=== PATIENT | male | born 2000 | race Caucasian/White ===

== ENCOUNTER 2021-01-16 17:33 | Emergency (ER) | payer OTHER, SELFPAY ==
--- NOTE | 2021-01-16 17:36 | ED.HA ---
HPI - Headache General Chief Complaint: Headache Stated Complaint: headache Time Seen by Provider: 01/16/21 17:36 Source: patient, family and RN notes reviewed Mode of arrival: ambulatory History of Present Illness HPI Narrative: This is a 20-year-old male that presented to urgent care with complaints of a headache for approximately 1 week. Patient notes that he took Motrin at home with no relief. 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 Patient denies any trauma including his he. Patient notes that his head feels fuzzy. He notes that his headaches is on the front part of his forehead. Patient does have an appointment with his primary care physician . It was explained to the patient that we nor can we do a CT of his head. I explained to patient if his situation worsens, if his level of consciousness change become confused has a syncope episode problems with breathing, visual disturbance, diplopia he will need to proceed to the emergency department. He also denies SOB, CP, palpitation, extremity numbness, lightheadedness, dizziness, constipation, diarrhea, chills, or fever. RADHA SOB, CP, palpitation, extremity numbness, lightheadedness, dizziness, constipation, diarrhea, chills, or fever. MD elicited complaint: headache Related Data Allergies Allergy/AdvReac Type Severity Reaction Status Date / Time No Known Allergies Allergy Verified 01/16/21 17:34 Review of Systems Review of Systems: Narrative: A 14 organ system Review of Systems was performed and pertinent positives included in the HPI, otherwise remaining ROS is negative. [facility] Family History Family History (Updated 01/16/21 @ 17:36 by ALEJANDRA Licea) Other Family history non-contributory Social History Social History Gender identity (if verbalized by the patient): Male Exam Narrative: Exam Narrative: GENERAL: This is a well-nourished, well-developed patient, in no apparent distress. HEAD: normocephalic, atraumatic. EYES: PERRL. Sclera clear/white. Vision is grossly intact. EARS: External ears normal, auditory canals clear and without drainage, TMs normal without perforation. Hearing grossly intact. NOSE: External nose normal with no obvious nasal discharge, nares without redness, no rhinorrhea. THROAT: Mucous membranes moist, posterior pharynx clear. NECK: Neck supple, non-tender without lymphadenopathy, masses or thyromegaly. CARDIOVASCULAR: Regular rate and rhythm without murmurs, gallops, or rubs. RESPIRATORY: Clear to auscultation. Breath sounds equal bilaterally. No wheezes, rales, or rhonchi. GASTROINTESTINAL: Abdomen soft, non-tender, nondistended. Bowel sounds are active. No hepato-splenomegaly, or palpable masses. No guarding. SKIN: warm, intact with no suspicious lesions or rash, good texture and turgor. NEURO: awake, alert, and oriented to person, place and time. There were no obvious focal neurologic abnormalities. Steady gait EXTREMITIES: Normal range of motion. No edema. No calf tenderness. Negative Homans sign bilaterally. BACK: Nontender without deformity or crepitance. No flank tenderness. Course Vital Signs Vital signs: Vital Signs Temperature 98.9 F 01/16/21 17:43 Pulse Rate 75 01/16/21 17:43 Respiratory Rate 16 01/16/21 17:43 Blood Pressure 140/72 01/16/21 17:43 Pulse Oximetry 100 01/16/21 17:43 Temperature 98.9 F 01/16/21 17:52 Pulse Rate 75 01/16/21 17:52 Respiratory Rate 16 01/16/21 17:52 Blood Pressure 140/72 01/16/21 17:52 Pulse Oximetry 100 01/16/21 17:52 Discharge Plan Discharge Clinical Impression: Dehydration Sinusitis Qualifiers: Sinusitis location: frontal Chronicity: acute Recurrence: non-recurrent Qualified Code(s): J01.10 - Acute frontal sinusitis, unspecified Patient Disposition: Home, Self-Care Condition: Stable Instructions: Antibiotic Form, Dehydration (ED), Sinusitis (ED) Additional Instructions: Follow-up with pr
[2021-01-16 17:43] VITALS: BP 140/72; PULSE 75; RESP 16; TEMP 37.2; O2SAT 100
[2021-01-16 17:52] VITALS: BP 140/72; PULSE 75; RESP 16; TEMP 37.2; O2SAT 100
== END 2021-01-16 18:00 | disposition home or self-care (01) ==
LOC: EXPTROY 17:38
PROVIDERS: Emergency Provider Nurse Practitioner
DX: J01.10 Acute frontal sinusitis, unspecified (principal)
CPT/HCPCS: 99213; G0463